=== PATIENT | male | born 1970 | race Caucasian/White ===

== ENCOUNTER 2018-09-03 18:16 | Emergency (ER) | payer OTHER ==
--- NOTE | 2018-09-03 18:21 | PDOC ---
Rapid Medical Evaluation Chief Complaint: Bite Time Seen by Provider: 09/03/18 18:19 Medical Evaluation: Allergies Allergy/AdvReac Type Severity Reaction Status Date / Time No Known Allergies Allergy Unverified 04/07/12 13:39 09/03/18 18:20 I have performed a brief in-person evaluation of this patient. The patient presents with a chief complaint of: dog bite, stray dog Pertinent physical exam findings:stable and in NAD, non-focal I have ordered the following: n/a The patient will proceed to the ED for further evaluation.
[2018-09-03 18:24] VITALS: BP 114/79; PULSE 95; TEMP 98.4; BMI 48.4
[2018-09-03] MEDS ORDERED: DIPHTH,PERTUSS(ACELL),TET 0.5 ML DISP.SYRIN IM ONE ×2 (18:29→19:03)
[2018-09-03] MEDS ORDERED: RABIES IMMUNE GLOBULIN 300 UNITS/1 ML VIAL IM ONE (18:29)
[2018-09-03] MEDS ORDERED: RABIES VACCINE (PCEC)/PF 2.5 UNIT/VIAL IM ONE ×2 (18:29→19:03)
[2018-09-03] MEDS ORDERED: RABIES IMMUNE GLOBULIN 300 UNITS/1 ML VIAL ONE (19:03)
--- NOTE | 2018-09-03 19:25 | PDOC ---
History of Present Illness - General Chief Complaint: Bite Stated Complaint: DOG BITE Time Seen by Provider: 09/03/18 18:19 Past History - Past Medical History Allergies/Adverse Reactions: Allergies Allergy/AdvReac Type Severity Reaction Status Date / Time No Known Allergies Allergy Unverified 04/07/12 13:39 COPD: No Dementia: No - Immunization History Immunization Up to Date: No - Suicide/Smoking/Psychosocial Hx Smoking History: Never smoked Have you smoked in the past 12 months: No Information on smoking cessation initiated: No Hx Alcohol Use: No Drug/Substance Use Hx: No *Physical Exam - Vital Signs Last Vital Signs Temp Pulse Resp BP Pulse Ox 98.4 F 95 H 16 114/79 98 09/03/18 18:20 09/03/18 18:20 09/03/18 18:20 09/03/18 18:20 09/03/18 18:20 ED Treatment Course - Medications Given in the ED: ED Medications Discontinued Medications Generic Name Dose Route Start Last Admin Trade Name Freq PRN Reason Stop Dose Admin Diphtheria/Tetanus/Acell Pertussis 0.5 ml 09/03/18 18:29 09/03/18 19:16 Boostrix - IM 09/03/18 18:30 0.5 ml .ONCE ONE Administration Rabies Vaccine 2.5 unit 09/03/18 18:29 09/03/18 19:16 Rabavert Rabies Vaccine IM 09/03/18 18:30 2.5 unit .ONCE ONE Administration *DC/Admit/Observation/Transfer Diagnosis at time of Disposition: Dog bite of elbow Qualifiers: Encounter type: initial encounter Laterality: right Qualified Code(s): S51.051A - Open bite, right elbow, initial encounter; W54.0XXA - Bitten by dog, initial encounter - Discharge Dispostion Disposition: HOME Condition at time of disposition: Stable Decision to Admit order: No - Referrals - Patient Instructions Printed Discharge Instructions: DI for Animal Bites Additional Instructions: You were evaluated for your bite today The antibiotic you are taking covers infections from animal bites Take it as prescribed Keep the area clean and dry Rabies vaccinations were administered. Please follow the schedule for your next rabies shots Return to the ER sooner for signs of infection including fever, redness around the site, nausea, vomiting, or if you have any changes in your symptoms - Post Discharge Activity Forms/Work/School Notes: Rabies Vaccination F/U Julieth.
== END 2018-09-03 20:56 | disposition home or self-care (01) ==
LOC: JERFT 18:16
PROC: 3E0234Z Introduction of Serum, Toxoid and Vaccine into Muscle, Percutaneous Approach (ICD-10-PCS; principal; 2018-09-03)
PROC: 3E0234Z Introduction of Serum, Toxoid and Vaccine into Muscle, Percutaneous Approach (ICD-10-PCS; 2018-09-03)
PROC: 3E0234Z Introduction of Serum, Toxoid and Vaccine into Muscle, Percutaneous Approach (ICD-10-PCS; 2018-09-03)
DX: S51.051A Open bite, right elbow, initial encounter (principal); W54.0XXA Bitten by dog, initial encounter; Y93.89 Activity, other specified; Y92.89 Other specified places as the place of occurrence of the external cause; Y99.8 Other external cause status
CPT/HCPCS: 90375; 90675; 90715; 99281-25

== ENCOUNTER 2018-09-06 08:02 | Emergency (ER) | payer OTHER ==
[2018-09-06 08:07] VITALS: BP 141/54; PULSE 78; TEMP 98; BMI 48.4
[2018-09-06] MEDS ORDERED: RABIES VACCINE (PCEC)/PF 2.5 UNIT/VIAL IM ONE ×2 (08:35→08:39)
--- NOTE | 2018-09-06 08:37 | PDOC ---
History of Present Illness - General Chief Complaint: Revisit,Rabies Injection Stated Complaint: RABIES SECOND SHOT Time Seen by Provider: 09/06/18 08:26 History Source: Patient Past History - Past Medical History Allergies/Adverse Reactions: Allergies Allergy/AdvReac Type Severity Reaction Status Date / Time No Known Allergies Allergy Unverified 09/06/18 08:06 Home Medications: Ambulatory Orders NK [No Known Home Medication] 09/03/18 COPD: No Dementia: No - Immunization History Immunization Up to Date: No - Suicide/Smoking/Psychosocial Hx Smoking History: Never smoked Have you smoked in the past 12 months: No Hx Alcohol Use: No Drug/Substance Use Hx: No Review of Systems - Review of Systems Constitutional: No: Chills, Fever Integumentary: No: Erythema *Physical Exam - Vital Signs Last Vital Signs Temp Pulse Resp BP Pulse Ox 98 F 78 18 141/54 L 97 09/06/18 08:03 09/06/18 08:03 09/06/18 08:03 09/06/18 08:03 09/06/18 08:03 - Physical Exam General Appearance: Yes: Appropriately Dressed. No: Apparent Distress HEENT: positive: Normal Voice Neck: positive: Supple Respiratory/Chest: negative: Respiratory Distress Integumentary: positive: Other (well healing abrasion to dorsal aspect of promixal R forearm, no erythem,swelling, ttp) Neurologic: positive: Fully Oriented, Alert, Normal Mood/Affect Medical Decision Making - Medical Decision Making 09/06/18 08:37 48 yo M, no sig hx, here for 2nd rabies vaccine. No active medical complaints at this time. Wound healing well. Vaccine given today. Will dc to f/u for additional vaccines *DC/Admit/Observation/Transfer Diagnosis at time of Disposition: Need for rabies vaccination - Discharge Dispostion Disposition: HOME Condition at time of disposition: Good - Referrals Referrals: Tim White MD [Primary Care Provider] - - Patient Instructions Additional Instructions: Please follow up for additional vaccines - Post Discharge Activity
== END 2018-09-06 08:50 | disposition home or self-care (01) ==
LOC: JERFT 08:02
PROC: 3E0234Z Introduction of Serum, Toxoid and Vaccine into Muscle, Percutaneous Approach (ICD-10-PCS; principal; 2018-09-06)
DX: Z20.3 Contact with and (suspected) exposure to rabies (principal); S51.851D Open bite of right forearm, subsequent encounter; W54.0XXD Bitten by dog, subsequent encounter
CPT/HCPCS: 90471; 90675; 99281-25

== ENCOUNTER 2018-09-09 17:03 | Emergency (ER) | payer OTHER ==
[2018-09-09] MEDS ORDERED: ASPIRIN 81 MG CHEWABLE TABLETS PO ONE (17:14)
--- NOTE | 2018-09-09 17:14 | PDOC ---
Rapid Medical Evaluation Time Seen by Provider: 09/09/18 17:13 Medical Evaluation: Allergies Allergy/AdvReac Type Severity Reaction Status Date / Time No Known Allergies Allergy Unverified 09/06/18 08:06 09/09/18 17:13 HPI: Chest pain radiating stright through to back since yesterday PE: NAD ORDERS: Cardiac work up
[2018-09-09 17:17] VITALS: BMI 47.9
[2018-09-09 17:51] LABS: BASO % 0.4 % (0-2.0); EOS % 3.6 % (0-4.5); HEMATOCRIT 40.5 % (35.4-49); HEMOGLOBIN 13.7 GM/dL (11.7-16.9); LYMPH % 24.4 % (8-40); MCH 29.7 pg (25.7-33.7); MCHC 33.8 g/dl (32.0-35.9); MEAN CELL VOLUME 87.7 fl (80-96); MEAN PLT VOLUME 8.3 fl (7.5-11.1); NEUT % 63.6 % (42.8-82.8); PLATELET COUNT 301 K/MM3 (134-434); RBC 4.62 M/mm3 (4.00-5.60); RDW 13.4 % (11.9-15.9); WHITE BLOOD COUNT 14.6 K/mm3 (4.0-10.0)
[2018-09-09] MEDS ORDERED: ASPIRIN 81 MG CHEWABLE TABLETS ONE (18:01)
[2018-09-09 18:04] LABS: INR 1.1 (0.83-1.09)
[2018-09-09 18:11] LABS: ALBUMIN 3.6 g/dl (3.4-5.0); ALK PHOS 134 U/L (45-117); ANION GAP 7 MMOL/L (8-16); BILIRUBIN,TOTAL 0.3 mg/dL (0.2-1); BLOOD UREA NITROGEN 19 mg/dL (7-18); CALCIUM 9.6 mg/dL (8.5-10.1); CHLORIDE 104 mmol/L (98-107); CO2 26 mmol/L (21-32); CREATININE 0.7 mg/dL (0.55-1.3); GLUCOSE,RANDOM 96 mg/dL (74-106); MAGNESIUM 2.2 mg/dL (1.8-2.4); POTASSIUM 3.5 mmol/L (3.5-5.1); SGOT/AST 35 U/L (15-37); SGPT/ALT 59 U/L (13-61); SODIUM 137 mmol/L (136-145); TOT PROT 7.8 g/dl (6.4-8.2)
--- NOTE | 2018-09-09 18:31 | PDOC ---
History of Present Illness - General History Source: Patient Exam Limitations: No Limitations - History of Present Illness Initial Comments: 09/09/18 18:32 48 year old morbidly obese man with no signifcant past medical history who presents with 2 days of sudden onset constant mid chest pain yesterday at 11am radiating into the back described as pressure like and rated 9/10. He took Tums yesterday after his calling his PCP withouit relief of symptoms. The pain is worse with deep breathing and lying back. He notes that when pain worsens he has increase in burping which inturn makes his symptoms worse. The patient is currently on a 30 day course of doxycycline for prostatitis and being treated for rabies. He denies prior episode of such pain, denies history of GERD. Denies fever, recent travel, n/v/d/c, diaphoresis, abdominal pain, diarrhea, constipation <Manuela Fernandez - Last Filed: 09/09/18 22:12> <Ryan Woody - Last Filed: 09/10/18 00:41> - General Chief Complaint: Chest Pain Stated Complaint: CHEST PAIN Time Seen by Provider: 09/09/18 17:13 Past History - Past Medical History COPD: No Dementia: No - Immunization History Immunization Up to Date: No - Suicide/Smoking/Psychosocial Hx Smoking History: Never smoked Have you smoked in the past 12 months: No Information on smoking cessation initiated: No Hx Alcohol Use: No Drug/Substance Use Hx: No <Manuela Fernandez - Last Filed: 09/09/18 22:12> <Ryan Woody - Last Filed: 09/10/18 00:41> - Past Medical History Allergies/Adverse Reactions: Allergies Allergy/AdvReac Type Severity Reaction Status Date / Time No Known Allergies Allergy Verified 09/09/18 17:15 Home Medications: Ambulatory Orders Pantoprazole Sodium [Protonix -] 40 mg PO DAILY #14 tablet.ec 09/10/18 Review of Systems - Review of Systems Able to Perform ROS?: Yes Comments:: 09/09/18 19:57 GENERAL/CONSTITUTIONAL: No fever or chills. No weakness. HEAD, EYES, EARS, NOSE AND THROAT: No change in vision. No ear pain or discharge. No sore throat. CARDIOVASCULAR: + chest pain, No shortness of breath RESPIRATORY: No cough, wheezing, or hemoptysis. GASTROINTESTINAL: No nausea, vomiting, diarrhea or constipation. GENITOURINARY: + dysuria, frequency, or change in urination. MUSCULOSKELETAL: No joint or muscle swelling or pain. No neck or back pain. SKIN: No rash NEUROLOGIC: No headache, vertigo, loss of consciousness, or change in strength/ sensation. ENDOCRINE: No increased thirst. No abnormal weight change HEMATOLOGIC/LYMPHATIC: No anemia, easy bleeding, or history of blood clots. ALLERGIC/IMMUNOLOGIC: No hives or skin allergy. Is the patient limited [place] proficient: No <Manuela Fernandez - Last Filed: 09/09/18 22:12> *Physical Exam - Vital Signs Last Vital Signs Temp Pulse Resp BP Pulse Ox 98.5 F 103 H 17 143/82 100 09/09/18 17:15 09/09/18 17:15 09/09/18 17:15 09/09/18 17:15 09/09/18 17:15 - Physical Exam Comments: 09/09/18 19:58 GENERAL: Awake, alert, and fully oriented, in no acute distress, morbidly obese HEAD: No signs of trauma, normocephalic, atraumatic EYES: PERRLA, EOMI, sclera anicteric, conjunctiva clear ENT: oropharynx clear without exudates. Moist mucosa NECK: Normal ROM, supple, no lymphadenopathy, JVD, or masses LUNGS: No distress, speaks full sentences, clear to auscultation bilaterally HEART: Regular rate and rhythm, normal S1 and S2, no murmurs, rubs or gallops, peripheral pulses normal and equal bilaterally. CHEST: mild reproducibility of chest pain on palpation ABDOMEN: Soft, nontender, normoactive bowel sounds. No guarding, no rebound. No masses EXTREMITIES : Normal inspection, Normal range of motion, no edema. No clubbing or cyanosis. NEUROLOGICAL: Cranial nerves II through XII grossly intact. Normal speech, no focal sensorimotor deficits SKIN: Warm, Dry, normal turgor, no rashes or lesions noted <Manuela Fernandez - Last Filed: 09/09/18 22:12> - Vital Signs Last Vital Signs Temp Pulse Resp BP Pulse Ox 98.5 F 103 H 17 143/82 100 09/09/18 17:15 09/09/18 17:15 09/09/18 17:15 09/09/18 17:15 09/09/18 17:15 <Ryan Woody - Last Filed: 09/10/18 00:41> ED Treatment Course - LABORATORY CBC & Chemistry Diagram: 09/09/18 17:33 09/09/18 17:33 - ADDITIONAL ORDERS Additional order review: Laboratory Results 09/09/18 09/09/18 09/09/18 17:33 17:33 17:33 PT with INR 13.00 INR 1.10 H D-Dimer 893 H Sodium 137 Potassium 3.5 Chloride 104 Carbon Dioxide 26 Anion Gap 7 L BUN 19 H Creatinine 0.7 Est GFR (CKD-EPI)AfAm 131.17 Est GFR (CKD-EPI)NonAf 113.17 Random Glucose 96 Calcium 9.6 Magnesium 2.2 Total Bilirubin 0.3 AST 35 ALT 59 Alkaline Phosphatase 134 H Creatine Kinase 173 Troponin I < 0.02 Total Protein 7.8 Albumin 3.6 09/09/18 17:33 RBC 4.62 MCV 87.7 MCHC 33.8 RDW 13.4 MPV 8.3 Neutrophils % 63.6 Lymphocytes % 24.4 Monocytes % 8.0 Eosinophils % 3.6 Basophils % 0.4 - Medications Given in the ED: ED Medications Discontinued Medications Generic Name Dose Route Start Last Admin Trade Name Leoq PRN Reason Stop Dose Admin Aspirin 162 mg 09/09/18 17:14 09/09/18 18:02 Asa - PO 09/09/18 17:15 162 mg ONCE ONE Administration <Manuela Fernandez - Last Filed: 09/09/18 22:12> - LABORATORY CBC & Chemistry Diagram: 09/09/18 17:33 09/09/18 17:33 - ADDITIONAL ORDERS Additional order review: Laboratory Results 09/09/18 09/09/18 09/09/18 23:40 17:33 17:33 PT with INR INR D-Dimer 893 H Sodium 137 Potassium 3.5 Chloride 104 Carbon Dioxide 26 Anion Gap 7 L BUN 19 H Creatinine 0.7 Est GFR (CKD-EPI)AfAm 131.17 Est GFR (CKD-EPI)NonAf 113.17 Random Glucose 96 Calcium 9.6 Magnesium 2.2 Total Bilirubin 0.3 AST 35 ALT 59 Alkaline Phosphatase 134 H Creatine Kinase 173 Creatine Kinase Index 1.2 CK-MB (CK-2) 2.1 Troponin I < 0.02 < 0.02 Total Protein 7.8 Albumin 3.6 Lipase 111 09/09/18 17:33 PT with INR 13.00 INR 1.10 H D-Dimer Sodium Potassium Chloride Carbon Dioxide Anion Gap BUN Creatinine Est GFR (CKD-EPI)AfAm Est GFR (CKD-EPI)NonAf Random Glucose Calcium Magnesium Total Bilirubin AST ALT Alkaline Phosphatase Creatine Kinase Creatine Kinase Index CK-MB (CK-2) Troponin I Total Protein Albumin Lipase 09/09/18 17:33 RBC 4.62 MCV 87.7 MCHC 33.8 RDW 13.4 MPV 8.3 Neutrophils % 63.6 Lymphocytes % 24.4 Monocytes % 8.0 Eosinophils % 3.6 Basophils % 0.4 - Medications Given in the ED: ED Medications Discontinued Medications Generic Name Dose Route Start Last Admin Trade Name Freq PRN Reason Stop Dose Admin Acetaminophen 1,000 mg 09/09/18 21:55 09/09/18 23:40 Ofirmev Injection - IVPB 09/09/18 21:56 1,000 mg ONCE ONE Administration Al Hydroxide/Mg Hydroxide 30 ml 09/09/18 19:55 09/09/18 20:25 Mylanta Oral Suspension - PO 09/09/18 19:56 30 ml ONCE ONE Administration Aspirin 162 mg 09/09/18 17:14 09/09/18 18:02 Asa - PO 09/09/18 17:15 162 mg ONCE ONE Administration Famotidine/Sodium Chloride 20 mg in 50 mls @ 100 mls/hr 09/09/18 19:55 20:25 Pepcid 20 Mg Premixed Ivpb - IVPB 09/09/18 20:24 100 mls/hr ONCE ONE Administration Sucralfate 1 gm 09/09/18 21:55 09/09/18 23:35 Carafate - PO 09/09/18 21:56 1 gm ONCE ONE Administration <Ryan Woody - Last Filed: 09/10/18 00:41> Medical Decision Making - Medical Decision Making 09/09/18 19:14 48 year old morbidly obese man with no signifcant past medical history who presents with 2 days of sudden onset constant mid chest pain yesterday at 11am radiating into the back described as pressure like and rated 9/10. He took Tums yesterday after his calling his PCP withouit relief of symptoms. The pain is worse with deep breathing and lying back. He notes that when pain worsens he has increase in burping which inturn makes his symptoms worse. ED Course: ddx ibnlt: acs vs arrythmia vs gerd vs dissection vs pancreatitis cbc, cmp, trop, ekg patient pain discription concerning for dieesction bp equal on both arms at bedside. 120/70-80s palpable and eual pulses bilaterally EKG: sinus tachycardia HR 102, no interval abnormalities, narrow QRS, ST and T wave segments and morphology normal. labs w/ elevated dimer 866 trop negative will order CTA for concern for dissection lipase r/o pancreatits 09/09/18 20:45 lipase wnl <Manuela Fernandez - Last Filed: 09/09/18 22:12> *DC/Admit/Observation/Transfer <Manuela Fernandez - Last Filed: 09/09/18 22:12> <Ryan Woody - Last Filed: 09/10/18 00:41> Diagnosis at time of Disposition: Epigastric pain Chest pain Qualifiers: Chest pain type: unspecified Qualified Code(s): R07.9 - Chest pain, unspecified - Discharge Dispostion Disposition: HOME Condition at time of disposition: Stable - Referrals Referrals: Galen Cardozo MD [Primary Care Provider] - - Patient Instructions Printed Discharge Instructions: DI for Atypical Chest Pain, DI for Epigastric Pain
[2018-09-09] MEDS ORDERED: FAMOTIDINE 20 MG/50 ML IVPB 20 MG/50 ML MG IVPB ONE ×2 (19:55→20:18)
[2018-09-09] MEDS ORDERED: MAG HYDROX/AL HYDROX/SIMETH 30 ML UNIT-DOSE CUP PO ONE (19:55)
[2018-09-09] MEDS ORDERED: MAG HYDROX/AL HYDROX/SIMETH 30 ML UNIT-DOSE CUP ONE (20:18)
[2018-09-09 20:41] LABS: LIPASE 111 U/L (73-393)
[2018-09-09] MEDS ORDERED: ACETAMINOPHEN 1000 MG/100 ML VIAL (NON FORMULARY) IVPB ONE (21:55)
[2018-09-09] MEDS ORDERED: SUCRALFATE 1 GM TABLET (FP) PO ONE (21:55)
--- NOTE | 2018-09-09 22:00 | PDOC ---
Documentation entered by Perla Boyd SCRIBE, acting as scribe for Ryan Woody MD. Ryan Woody MD: This documentation has been prepared by the Deb samano Daisy, SCRIBE, under my direction and personally reviewed by me in its entirety. I confirm that the documentation accurately reflects all work, treatment, procedures, and medical decision making performed by me. Attending Attestation - Resident Resident Name: Manuela Fernandez - ED Attending Attestation I have performed the following: I have examined & evaluated the patient, The case was reviewed & discussed with the resident, I agree w/resident's findings & plan - HPI HPI: 09/09/18 19:23 The patient is a 48 YOM with no PMH who presents to the ER for mid chest pressure today. He reports the chest pressure is radiating to the back, 9/10 in severity, constant, which is exacerbated with deep breathing and lying flat. Denies similar symptoms in the past. Denies abdominal pain, diaphoresis, leg swelling, N/V/D/C. Allergies: NKDA - Physicial Exam PE: 09/09/18 21:58 Patient is awake and alert, morbidly obese, in mild distress Normocephalic, atraumatic PERRLA, EOMI, no scleral icterus CTA RRR Abdomen soft, nondistended, minimal left upper quadrant tenderness and epigastric tenderness is appreciated; no guarding or rebound No lower extremity edema - Medical Decision Making 09/09/18 21:58 Patient is a morbidly obese 48-year-old male who presents with atraumatic epigastric/substernal chest pain radiating to the back. CTA of chest shows no evidence of dissection/PE/pericardial effusion. EKG shows no evidence of acute ischemia. Lipase is within normal limit. We'll administer H2 blockers and Maalox. ACS is highly unlikely. We'll obtain second set of cardiac enzymes. Likely discharge. 09/10/18 00:39 Patient reassessed. Patient is resting comfortably and is currently pain-free. Patient is able to lie supine without any symptomatology. Repeat cardiac enzymes is within normal limit. I do not believe ACS is responsible for the patient's symptoms given the reproducibility of patient's left upper quadrant pain. Will discharge with PPI with PMD follow-up.
[2018-09-09] MEDS ORDERED: SUCRALFATE 1 GM TABLET (FP) ONE (23:30)
[2018-09-09] MEDS ORDERED: ACETAMINOPHEN INJECTION 100 ML IVPB ONE (23:31)
[2018-09-10 01:18] VITALS: BP 107/67; PULSE 78; TEMP 98.1
--- NOTE | 2018-09-10 17:17 | EKG ---
Test Reason : Blood Pressure : / mmHG Vent. Rate : 102 BPM Atrial Rate : 102 BPM P-R Int : 194 ms QRS Dur : 092 ms QT Int : 346 ms P-R-T Axes : 048 -04 033 degrees QTc Int : 450 ms SINUS TACHYCARDIA OTHERWISE NORMAL ECG NO PREVIOUS ECGS AVAILABLE Confirmed by KRISTEN PETERSON MD ([id number]) on 09/10/2018 5:17:11 PM Referred By: Confirmed By:KRISTEN PETERSON MD
== END 2018-09-10 01:18 | disposition home or self-care (01) ==
LOC: JER 17:03
PROC: 3E033GC Introduction of Other Therapeutic Substance into Peripheral Vein, Percutaneous Approach (ICD-10-PCS; principal; 2018-09-09)
PROC: 3E033NZ Introduction of Analgesics, Hypnotics, Sedatives into Peripheral Vein, Percutaneous Approach (ICD-10-PCS; 2018-09-09)
DX: R07.9 Chest pain, unspecified (principal); R10.13 Epigastric pain
CPT/HCPCS: 36415; 71046-TC-FY; 71275-TC; 74175-TC; 80053; 82550; 82553; 83690; 83735; 84484; 85025; 85379; 85610; 93005; 93010; 99283-25; J0131

== ENCOUNTER 2018-09-10 17:08 | Emergency (ER) | payer OTHER ==
[2018-09-10 17:15] VITALS: BP 132/82; PULSE 86; TEMP 97.9; BMI 47.9
[2018-09-10] MEDS ORDERED: RABIES VACCINE (PCEC)/PF 2.5 UNIT/VIAL IM ONE ×2 (17:16→17:29)
--- NOTE | 2018-09-10 17:17 | PDOC ---
Rapid Medical Evaluation Chief Complaint: Revisit,Rabies Injection Time Seen by Provider: 09/10/18 17:15 Medical Evaluation: Allergies Allergy/AdvReac Type Severity Reaction Status Date / Time No Known Allergies Allergy Verified 09/10/18 17:16 Vital Signs Temp Pulse Resp BP Pulse Ox 97.9 F 86 16 132/82 96 09/10/18 17:13 09/10/18 17:13 09/10/18 17:13 09/10/18 17:13 09/10/18 17:13 09/10/18 17:16 I have performed a brief in-person evaluation of this patient. The patient presents with a chief complaint of: 3rd injection of rabies vaccine s/p being bitten by a stray dog. Denies any complains now Pertinent physical exam findings: A&O x 3 I have ordered the following: rabbis vaccine The patient will proceed to the ED for further evaluation. Discharge Disposition - Diagnosis Need for rabies vaccination - Discharge Dispostion Condition at time of disposition: Stable - Referrals - Patient Instructions - Post Discharge Activity
--- NOTE | 2018-09-10 17:25 | PDOC ---
History of Present Illness - General Chief Complaint: Revisit,Rabies Injection Stated Complaint: IMMUNIZATION Time Seen by Provider: 09/10/18 17:15 History Source: Patient Exam Limitations: No Limitations Past History - Travel Traveled outside of the country in the last 30 days: No Close contact w/someone who was outside of country & ill: No - Past Medical History Allergies/Adverse Reactions: Allergies Allergy/AdvReac Type Severity Reaction Status Date / Time No Known Allergies Allergy Verified 09/10/18 17:16 Home Medications: Ambulatory Orders Pantoprazole Sodium [Protonix -] 40 mg PO DAILY #14 tablet.ec 09/10/18 COPD: No Dementia: No - Immunization History Immunization Up to Date: No - Suicide/Smoking/Psychosocial Hx Smoking History: Never smoked Have you smoked in the past 12 months: No Hx Alcohol Use: No Drug/Substance Use Hx: No Review of Systems - Review of Systems Able to Perform ROS?: Yes Comments:: 09/10/18 17:24 CONSTITUTIONAL: Absent: fever, chills, diaphoresis, generalized weakness, malaise, loss of appetite HEENT: Absent: rhinorrhea, nasal congestion, throat pain, throat swelling, difficulty swallowing, mouth swelling, ear pain, eye pain, visual Changes CARDIOVASCULAR: Absent: chest pain, loss of consciousness, palpitations, irregular heart rate, peripheral edema RESPIRATORY: Absent: cough, shortness of breath, dyspnea with exertion, orthopnea, wheezing, stridor, hemoptysis GASTROINTESTINAL: Absent: abdominal pain, abdominal distension, nausea, vomiting, diarrhea, constipation, melena, hematochezia GENITOURINARY: Absent: dysuria, frequency, urgency, hesitancy, hematuria, flank pain, genital pain MUSCULOSKELETAL: Absent: myalgia, arthralgia, joint swelling SKIN: Absent: rash, itching, pallor HEMATOLOGIC/IMMUNOLOGIC: Absent: easy bleeding, easy bruising, lymphadenopathy, frequent infections ENDOCRINE: Absent: unexplained weight gain, unexplained weight loss, heat intolerance, cold intolerance NEUROLOGIC: Absent: headache, focal weakness or paresthesias, dizziness, unsteady gait, seizure, mental status changes, bladder or bowel incontinence PSYCHIATRIC: Absent: anxiety, depression, suicidal or homicidal ideation, hallucinations. Is the patient limited [place] proficient: No *Physical Exam - Vital Signs Last Vital Signs Temp Pulse Resp BP Pulse Ox 97.9 F 86 16 132/82 96 09/10/18 17:13 09/10/18 17:13 09/10/18 17:13 09/10/18 17:13 09/10/18 17:13 - Physical Exam Comments: 09/10/18 17:25 GENERAL: The patient is awake, alert, and fully oriented, in no acute distress. HEAD: Normal with no signs of trauma. EYES: Pupils equal, round and reactive to light, extraocular movements intact, sclera anicteric, conjunctiva clear. EXTREMITIES: Normal range of motion, no edema. NEUROLOGICAL: Normal speech, normal gait. PSYCH: Normal mood, normal affect. SKIN: Warm, Dry, normal turgor, no rashes or lesions noted. *DC/Admit/Observation/Transfer Diagnosis at time of Disposition: Need for rabies vaccination - Discharge Dispostion Condition at time of disposition: Stable - Referrals - Patient Instructions Printed Discharge Instructions: DI for Rabies Vaccine Additional Instructions: Follow the rest of the rabies schedule as previously dictated Return in one week for your last rabies vaccination Follow with your primary care doctor tomorrow as previously set up Return sooner for worsening pain, fever, or if you have any changes in your symptoms - Post Discharge Activity Forms/Work/School Notes: Back to Work
== END 2018-09-10 17:47 | disposition home or self-care (01) ==
LOC: JERFT 17:08
PROC: 3E0234Z Introduction of Serum, Toxoid and Vaccine into Muscle, Percutaneous Approach (ICD-10-PCS; principal; 2018-09-10)
DX: Z20.3 Contact with and (suspected) exposure to rabies (principal); W54.0XXD Bitten by dog, subsequent encounter
CPT/HCPCS: 90675; 99281-25

== ENCOUNTER 2018-09-17 17:11 | Emergency (ER) | payer OTHER ==
--- NOTE | 2018-09-17 17:19 | PDOC ---
Rapid Medical Evaluation Medical Evaluation: Allergies Allergy/AdvReac Type Severity Reaction Status Date / Time No Known Allergies Allergy Verified 09/10/18 17:16 I have performed a brief in-person evaluation of this patient. The patient presents with a chief complaint of: Here for his last rabies shot ( previous shot 1 week ago) I have ordered the following: Rabies The patient will proceed to the ED for further evaluation. 09/17/18 17:19 Discharge Disposition - Discharge Dispostion Condition at time of disposition: Stable - Referrals - Patient Instructions - Post Discharge Activity
[2018-09-17] MEDS ORDERED: RABIES VACCINE (PCEC)/PF 2.5 UNIT/VIAL IM ONE ×2 (17:21→17:28)
[2018-09-17 17:23] VITALS: BP 95/60; PULSE 65; TEMP 97.6; BMI 47.9
--- NOTE | 2018-09-17 17:24 | PDOC ---
History of Present Illness - General Chief Complaint: Revisit,Rabies Injection Stated Complaint: IMMUNIZATION Time Seen by Provider: 09/17/18 17:21 History Source: Patient Exam Limitations: No Limitations Past History - Travel Traveled outside of the country in the last 30 days: No Close contact w/someone who was outside of country & ill: No - Past Medical History Allergies/Adverse Reactions: Allergies Allergy/AdvReac Type Severity Reaction Status Date / Time No Known Allergies Allergy Verified 09/10/18 17:16 Home Medications: Ambulatory Orders Pantoprazole Sodium [Protonix -] 40 mg PO DAILY #14 tablet.ec 09/10/18 COPD: No Dementia: No - Immunization History Immunization Up to Date: No - Suicide/Smoking/Psychosocial Hx Smoking History: Former smoker Have you smoked in the past 12 months: No Information on smoking cessation initiated: No Hx Alcohol Use: No Drug/Substance Use Hx: No Review of Systems - Review of Systems Able to Perform ROS?: Yes Comments:: 09/17/18 17:23 CONSTITUTIONAL: Absent: fever, chills, diaphoresis, generalized weakness, malaise, loss of appetite MUSCULOSKELETAL: Absent: myalgia, arthralgia, joint swelling SKIN: Absent: rash, itching, pallor NEUROLOGIC: Absent: headache, focal weakness or paresthesias, dizziness, unsteady gait, seizure, mental status changes, bladder or bowel incontinence PSYCHIATRIC: Absent: anxiety, depression, suicidal or homicidal ideation, hallucinations. *Physical Exam - Vital Signs Last Vital Signs Temp Pulse Resp BP Pulse Ox 97.6 F 65 16 95/60 96 09/17/18 17:18 09/17/18 17:18 09/17/18 17:18 09/17/18 17:18 09/17/18 17:18 - Physical Exam Comments: 09/17/18 17:23 GENERAL: The patient is awake, alert, and fully oriented, in no acute distress. HEAD: Normal with no signs of trauma. EYES: Pupils equal, round and reactive to light, extraocular movements intact, sclera anicteric, conjunctiva clear. EXTREMITIES: Normal range of motion, no edema. NEUROLOGICAL: Normal speech, normal gait. PSYCH: Normal mood, normal affect. SKIN: Warm, Dry, normal turgor, no rashes or lesions noted. Medical Decision Making - Medical Decision Making 09/17/18 17:23 the patient is a 48-year-old male who presents to the ER today for his last rabies injection. States that he has had no problem where the wound was and that he feels well. He has no other complaints at this time. A/P: Need for rabies injection Wound where the animal bite was is well healed at this point with no scabbing. No secondary signs of infection. Last rabies vaccine administered Discharge home I discussed the physical exam findings, ancillary test results and final diagnoses with the patient. I answered all of the patient's questions. The patient was satisfied with the care received and felt comfortable with the discharge plan and treatment plan. The Patient agrees to follow up with the primary care physician/specialist within 24-72 hours. Return precautions were given. *DC/Admit/Observation/Transfer Diagnosis at time of Disposition: Need for rabies vaccination - Discharge Dispostion Disposition: HOME Condition at time of disposition: Stable Decision to Admit order: No - Referrals - Patient Instructions Printed Discharge Instructions: DI for Rabies Vaccine Additional Instructions: You were given your last rabies shot today. Please continue all her home medications as previously prescribed. Return to the ER for any new or worsening symptoms. - Post Discharge Activity Forms/Work/School Notes: Back to Work
== END 2018-09-17 17:56 | disposition home or self-care (01) ==
LOC: JERFT 17:11
PROC: 3E0234Z Introduction of Serum, Toxoid and Vaccine into Muscle, Percutaneous Approach (ICD-10-PCS; principal; 2018-09-17)
DX: Z20.3 Contact with and (suspected) exposure to rabies (principal)
CPT/HCPCS: 90675; 99281-25

== ENCOUNTER 2018-11-11 11:46 | Day surgery (SDC) | payer OTHER ==
[2018-11-10 15:46] VITALS: BMI 47.5
[2018-11-11] MEDS ORDERED: BACITRACIN 15 GM TUBE TOPICAL OINTMENT ONE (12:22)
[2018-11-11] MEDS ORDERED: BUPIVACAINE HCL/PF 0.5% (5MG/ML) 10 ML VIAL ONE (12:59)
[2018-11-11] MEDS ORDERED: MIDAZOLAM HCL 2 MG/2 ML SINGLE DOSE VIAL ONE ×2 (13:00)
[2018-11-11] MEDS ORDERED: ceFAZolin SODIUM 1 GM VIAL ONE (13:22)
[2018-11-11] MEDS ORDERED: ceFAZolin SODIUM 1 GM VIAL IVPB ONE (13:24)
[2018-11-11] MEDS ORDERED: DEXAMETHASONE SOD PHOSPHATE 4 MG/1 ML VIAL ONE (13:25)
[2018-11-11] MEDS ORDERED: BUPIVACAINE HCL/PF 0.5% (5MG/ML) 10 ML VIAL IJ ONE ×2 (13:33)
[2018-11-11] MEDS ORDERED: ACETAMINOPHEN INJECTION 100 ML IVPB ONE (13:38)
--- NOTE | 2018-11-11 14:25 | OP ---
Operative Note - Note: Operative Date: 11/11/18 Pre-Operative Diagnosis: Phimosis and balonitis Operation: Circumcision Findings: Severe phimosis and balanitis Post-Operative Diagnosis: Same as Pre-op Surgeon: Radha Tony Anesthesia: Spinal Specimens Removed: Prepuce Estimated Blood Loss (mls): 10 Operative Report Dictated: Yes
[2018-11-11] MEDS ORDERED: ONDANSETRON 4 MG/2 ML VIAL IVPUSH PRN (14:43)
[2018-11-11] MEDS ORDERED: oxyCODONE HCL 5 MG TABLET PO PRN (14:43)
[2018-11-11] MEDS ORDERED: LACTATED RINGERS SOLUTION 1,000 ML IV SCH (14:45)
[2018-11-11 16:31] VITALS: TEMP 97.3
[2018-11-11] MEDS ORDERED: oxyCODONE HCL 5 MG TABLET ONE (19:13)
[2018-11-11] MEDS ORDERED: oxyCODONE HCL 5 MG TABLET PO ONE (19:15)
[2018-11-11 19:41] VITALS: BP 135/98; PULSE 74
--- NOTE | 2018-11-11 20:03 | OP ---
DATE OF OPERATION: 11/11/2018 SURGEON: Radha Tony MD ANESTHESIA: Spinal. PREOPERATIVE DIAGNOSIS: Balanitis and phimosis. POSTOPERATIVE DIAGNOSIS: Balanitis and phimosis. PROCEDURE: Circumcision. FINDINGS: Severe degree of phimosis noted and marked degree of balanitis also noted. PROCEDURE: Patient in supine position, under spinal anesthesia, was prepped and draped in the usual manner. Using a knife, incision was made around the choi, and a counter incision made in the mucous membrane 1 cm away from the mucocutaneous junction, and excess prepuce was removed. Multiple bleeding points were electrocoagulated. Skin was approximated to the mucous membrane using 3-0 plain catgut. Bacitracin dressing applied. Patient tolerated the procedure well and left the operating room in a satisfactory condition. RADHA TONY M.D. [id number]
== END 2018-11-11 19:40 | disposition home or self-care (01) ==
LOC: JASU-SURG 11:46
PROVIDERS: ATTEND Urology
PROC: 0VTTXZZ Resection of Prepuce, External Approach (ICD-10-PCS; principal; 2018-11-11 15:00)
DX: N47.1 Phimosis (principal); N48.1 Balanitis
CPT/HCPCS: 94760; J0131